=== PATIENT | female | born 1950 | race Caucasian/White ===

== ENCOUNTER → 2020-08-02 | Outpatient (CLI) | payer MEDICARE, OTHER | LOC: PT 10:59 | DX: M25.551 Pain in right hip (principal) ==

== ENCOUNTER 2020-08-17 11:05 | Outpatient (RCR) | payer MEDICARE, OTHER | END 2020-09-06 17:00 | LOC: PT 11:05 | DX: M16.9 Osteoarthritis of hip, unspecified (principal) ==

== ENCOUNTER → 2020-10-11 | Outpatient (CLI) | payer MEDICARE, OTHER | LOC: MAMMO 11:21 | DX: Z12.31 Encounter for screening mammogram for malignant neoplasm of breast (principal) ==

== ENCOUNTER 2020-11-13 09:56 | Outpatient (RCR) | payer MEDICARE, OTHER | END 2021-02-11 | disposition home or self-care (01) | LOC: PT | DX: M25.551 Pain in right hip (principal); Z96.641 Presence of right artificial hip joint ==

== ENCOUNTER → 2021-03-12 | Outpatient (CLI) | payer MEDICARE, OTHER ==
[2021-03-12 12:09] LABS: D-DIMER 3.14 mg/L FEU (0.15-0.50)
== END ==
LOC: RAD 11:19 → LAB 11:19
PROVIDERS: Family Medicine
DX: K44.9 Diaphragmatic hernia without obstruction or gangrene (principal); K22.9 Disease of esophagus, unspecified; R79.89 Other specified abnormal findings of blood chemistry
CPT/HCPCS: Q9967

== ENCOUNTER 2021-03-13 13:55 | Outpatient (RCR) | payer MEDICARE, OTHER | END 2021-04-20 23:59 | disposition home or self-care (01) | LOC: PT 13:55 | DX: Z96.651 Presence of right artificial knee joint (principal) ==

== ENCOUNTER 2021-04-23 11:30 | Outpatient (RCR) | payer MEDICARE, OTHER | END 2021-05-18 17:00 | disposition home or self-care (01) | LOC: PT 11:30 | DX: M25.551 Pain in right hip (principal); Z96.641 Presence of right artificial hip joint ==

== ENCOUNTER → 2021-08-30 | Outpatient (CLI) | payer MEDICARE, OTHER | LOC: VAS 09:41 → RAD 10:00 | DX: R60.0 Localized edema (principal) ==

== ENCOUNTER → 2023-08-18 | Outpatient (CLI) | payer MEDICARE, OTHER | LOC: RAD 11:54 | DX: R05.9 Cough, unspecified (principal) ==

== ENCOUNTER → 2024-02-09 | Outpatient (CLI) | payer MEDICARE | LOC: RAD 14:31 | DX: S92.911A Unspecified fracture of right toe(s), initial encounter for closed fracture (principal); X58.XXXA Exposure to other specified factors, initial encounter ==

== ENCOUNTER 2024-04-29 15:52 | Observation (INO) | payer MEDICARE ==
[~2024-04-29] VITALS: Ht 162.6 cm; Wt 95.4 kg
[2024-04-29 16:39] LABS: HEMATOCRIT 41.4 % (37.0-47.0); HEMOGLOBIN 13.7 g/dL (12.5-16.0); MEAN CELL VOLUME 91 fl (78-100); MEAN CORPUSCULAR HEMOGLOBIN 30 pg (27-31); MEAN CORPUSCULAR HGB CONC 33 g/dL (33-37); MEAN PLATELET VOLUME 9.1 fl (7.4-10.4); PLATELET COUNT 461 K/mm3 (130-400); RED BLOOD COUNT 4.55 M/mm3 (4.10-5.30); RED CELL DISTRIBUTION WIDTH 13.7 % (11.5-14.5); WHITE BLOOD COUNT 12.1 K/mm3 (4.8-10.8)
[2024-04-29 16:43] LABS: ALBUMIN 3.7 g/dL (3.4-4.8)
[2024-04-29 16:45] LABS: CALCIUM 9.9 mg/dL (8.3-10.5)
[2024-04-29 16:46] LABS: TOTAL PROTEIN 6.9 g/dL (6.2-8.1)
[2024-04-29 16:48] LABS: TOTAL BILIRUBIN 1.3 mg/dL (0.2-1.2)
[2024-04-29] MEDS ORDERED: NS 1,000 ML IV SCH ×2 (17:00→18:30)
[2024-04-29] MEDS ORDERED: Ondansetron 4 MG/2 ML VIAL IV ONE (17:00)
[2024-04-29 17:07] LABS: LYMPHOCYTE 6 % (20-51); MONOCYTE 11 % (3-10); NEUTROPHILS 83 % (42-75)
[2024-04-29] MEDS ORDERED: METHOCARBAMOL500 M1 PO (18:24)
[2024-04-29] MEDS ORDERED: SIMVASTATIN10 M1 PO (18:25)
[2024-04-29] MEDS ORDERED: LEVOTHYROXIN0.025 MG PO (18:25)
[2024-04-29] MEDS ORDERED: NEURONTIN300 MG/CAP (18:26)
[2024-04-29] MEDS ORDERED: PEPCID COMPLET1 EACH PO (18:27)
[2024-04-29] MEDS ORDERED: PROAIR HFA0.09 MG/AC IH (18:27)
[2024-04-29] MEDS ORDERED: FEOSOL325 MG PO (18:28)
[2024-04-29] MEDS ORDERED: Albuterol/Ipratropium 3 MG-0.5 MG/3 ML Neb Soln IH PRN (19:00)
[2024-04-29 19:20] VITALS: BP 123/83
[2024-04-29 19:48] LABS: URINE APPEARANCE CLOUDY (CLEAR); URINE COLOR AMBER (YELLOW)
[2024-04-29 19:51] LABS: PH-URINE 5.5 (5.0 - 8.0); URINE PROTEIN(semi-quant) 2+ (NEGATIVE)
[2024-04-29 19:52] LABS: URINE BILIRUBIN 3+ (NEGATIVE); URINE BLOOD NEGATIVE (NEGATIVE); URINE GLUCOSE NEGATIVE (NEGATIVE); URINE KETONE 4+ (NEGATIVE); URINE LEUKOCYTE ESTERASE NEGATIVE (NEGATIVE); URINE NITRATE NEGATIVE (NEGATIVE)
[2024-04-29 19:53] LABS: URINE MUCUS PRESENT (NOT PRESENT)
[2024-04-29] MEDS ORDERED: Folic Acid 1 MG TAB PO SCH (20:15)
[2024-04-29] MEDS ORDERED: Thiamine 100 MG TAB PO SCH (20:15)
[2024-04-29] MEDS ORDERED: Gabapentin 300 MG CAP PO SCH (21:00)
[2024-04-29] MEDS ORDERED: Famotidine 20 MG TAB PO SCH (21:00)
[2024-04-29] MEDS ORDERED: diphenhydrAMINE 25 MG CAP PO SCH (21:48)
[2024-04-29] MEDS ORDERED: Acetaminophen 325 MG TAB PO SCH (21:48)
[2024-04-29 22:35] VITALS: BP 130/77
[2024-04-29] MEDS ORDERED: D5 1/2 NS & 20mEq KCl 1,000 ML IV SCH (23:00)
[2024-04-30 02:42] VITALS: BP 142/88
[2024-04-30] MEDS ORDERED: Acetaminophen 325 MG TAB PO ONE (05:30)
[2024-04-30 07:23] VITALS: BP 124/86
[2024-04-30 07:30] LABS: HEMATOCRIT 41.2 % (37.0-47.0); HEMOGLOBIN 13.4 g/dL (12.5-16.0); MEAN CELL VOLUME 92 fl (78-100); MEAN CORPUSCULAR HEMOGLOBIN 30 pg (27-31); MEAN CORPUSCULAR HGB CONC 33 g/dL (33-37); PLATELET COUNT 515 K/mm3 (130-400); RED BLOOD COUNT 4.48 M/mm3 (4.10-5.30); RED CELL DISTRIBUTION WIDTH 13.8 % (11.5-14.5); WHITE BLOOD COUNT 12.4 K/mm3 (4.8-10.8)
[2024-04-30 07:42] LABS: ALBUMIN 3.4 g/dL (3.4-4.8); TOTAL PROTEIN 6.5 g/dL (6.2-8.1)
[2024-04-30 07:43] LABS: CALCIUM 9.1 mg/dL (8.3-10.5)
[2024-04-30 07:46] LABS: TOTAL BILIRUBIN 1.5 mg/dL (0.2-1.2)
[2024-04-30 07:56] LABS: BAND 6 % (0-10)
[2024-04-30 07:57] LABS: LYMPHOCYTE 5 % (20-51); MONOCYTE 1 % (3-10); NEUTROPHILS 88 % (42-75)
[2024-04-30 07:58] LABS: MAGNESIUM 1.69 mg/dL (1.60-2.60)
[2024-04-30] MEDS ORDERED: Methocarbamol 750 MG TAB PO SCH (09:00)
[2024-04-30] MEDS ORDERED: Morphine 4 MG/ML VIAL IV PRN (09:15)
[2024-04-30 10:28] VITALS: BP 135/84
[2024-04-30] MEDS ORDERED: cefTRIAXone 1 G in Water For Injection,Sterile 10 ML IV SCH (10:30)
[2024-04-30 12:44] VITALS: BP 136/82
== END 2024-04-30 15:00 | disposition short-term general hospital (02) ==
LOC: ED 15:52 → MED/SURG 18:11
PROVIDERS: Nurse Practitioner; ADMIT Family Medicine
DX: R74.01 Elevation of levels of liver transaminase levels (principal); E86.0 Dehydration; R09.02 Hypoxemia; Z98.84 Bariatric surgery status
CPT/HCPCS: G0378; J0696; J2270; J2405; J2765; J3480; J7030